=== PATIENT | male | born 1950 | race Caucasian/White ===

== ENCOUNTER → 2017-12-02 | Day surgery (SDC) | payer MEDICARE, OTHER ==
[~2017-12-02] MED LIST: ASPIRIN81 MG PEG; ATORVASTATIN CA20 MG PEG; AUGMENTIN 500-1 EACH PO; COLACE100 MG PO; FERROUS SULFAT325 MG PO; LOSARTAN POTASS25 MG PO; METOPROLOL TART25 MG PEG; PANTOPRAZOLE SO40 MG PEG; PANTOPRAZOLE SO40 MG PO; PROPOFOL IV EMULSION 10 MG/ML 50 ML VIAL ONE; TYLENOL WITH C1 EACH PO
--- OUTSIDE RECORDS SUMMARY | 2017-12-02 07:19 | XMS REPORT ---
Author Author [facility] Address Unknown Phone Unavailable Care Team Providers Care Four Slide Machine Operator Name Role Phone CITLALI SAM Unavailable Unavailable Problems This patient has no known problems. Allergies, Adverse Reactions, Alerts This patient has no known allergies or adverse reactions. Medications This patient has no known medications. Results Test Description Test Time Test Comments Text Results Atomic Results Result Comments CT SOFT TISSUE NECK W [place] [id number] [place] [id number] Patient Name: Ricardo HAAS MR #: [id number] : 1950 Age/Sex: 66/M Req #: [id number] Adm Physician: Ordered by: HODAN SELF Report #: [id number] Location: ER Room/Bed: Procedure: 0823- 0027 CT/CT SOFT TISSUE NECK W Exam Date: 03/10/17 Exam Time: 1709 REPORT STATUS: Signed Exam: Soft tissue neck CT with IV contrast History: Swelling in neck, hoarseness, dysphasia. Comparison studies: None Technique: Axial, coronal and sagittal images from the skull base to the thoracic inlet. Coronal and sagittal images reconstructed from the axial data. Intravenous contrast: 100 cc of Omnipaque 300. Findings: Upper aerodigestive tract: Asymmetric dilatation of the left piriform sinus and left laryngeal ventricle with medialized left vocal fold compatible with focal cortical paralysis. There is subtle asymmetric soft tissue thickening along the left false cord which extends to the superior margin of the posterior commissure. The paraglottic and preepiglottic fat are maintained. Arytenoid cartilage appear symmetric. Nasal cavity: A 2.0 cm hypodense lesion along the posterior right superior nasal septum which extends to the right nasal choana into the superior nasal pharynx may be a polyp. Paranasal sinuses: Clear. Soft tissues: Focal skin and soft tissue thickening in the left lateral cervical soft tissues and along the margins of the superior left sternocleidomastoid muscle as well as metallic clips in the left cervical soft tissues as sequela previous surgery. Lymph nodes: No radiographically significant adenopathy. Vessels: Cervical carotid and vertebral arteries are patent. Mild atherosclerosis in the cervical carotid bulbs and carotid siphons without significant cervical carotid bulbs. Glands (thyroid, parotid and submandibular): Normal in size and symmetric. No masses. Orbits: No abnormalities. Temporal bones : No abnormalities. Skull base and facial bones: Chronic deformity of the left ventricular body may be sequela of previous chronic endodontal- periodontal disease or trauma in the appropriate context. Periapical lucency at the left first maxillary molar. The first maxillary molar roots also extend beyond the lingual cortex of the mandible (activity to be determined clinically). Cervical spine: Mild multilevel cervical disc degeneration , slightly worse at C5-C6 where a disc osteophyte complex indents the thecal sac and result in minimal canal stenosis. Mild foraminal stenosis on the right at C3-C4 and bilaterally at C5-C6 due to uncovertebral facet arthrosis. Incidental findings: Partially imaged median sternotomy wires. IMPRESSION: 1. Imaging findings compatible with left vocal cord paralysis with subtle soft tissue thickening along the posterior left false focal fold which extends to the superior margin of the posterior commissure. Recommend correlation with direct inspection to evaluate focal cord mobility and to exclude focal cord neoplasm. 2. Postsurgical changes in the left neck. Soft tissue thickening in the left lateral neck presumably reflects scar tissue which and can be correlated with direct inspection. 3. No radiographically significant cervical adenopathy. 4. Circumscribed right posterior nasal cavity mass, likely polyp. Signed by: Dr. Ninfa Matt M.D. on 03/10/2017 6:04 PM Dictated By: NINFA MATT MD 2015 Transcribed By: SOLEDAD on 03/10/17 180 COPY TO: HODAN SELF CHEST 2 VIEWS [place] [address] Patient Name: TRACY HAAS MR #: [id number] : 1950 Age/Sex: 66/M Req #: [id number] Adm Physician: Ordered by: HODAN SELF Report #: [id number] Location: ER Room/Bed: Procedure: 0823- 0046 DX/CHEST 2 VIEWS Exam Date: 03/10/17 Exam Time : 1430 REPORT STATUS: Signed PROCEDURE: Frontal and lateral views of the chest. COMPARISON: [facility], DX, CHEST 2 VIEWS, 2014, 9:37. INDICATIONS: CHEST PAIN, WEAKNESS FINDINGS: Lines/tubes: None. Lungs: The lungs are well inflated and clear. There is no evidence of pneumonia or pulmonary edema. Pleura: There is no pleural effusion or pneumothorax. Heart and mediastinum: Cardiac silhouette is unremarkable. Pulmonary vasculature is normal. CABG changes Bones: No acute bony abnormality. IMPRESSION: 1. No acute cardiopulmonary abnormalities. Ezequiel Barron M.D. Dictated by : Ezequiel Barron M.D. on 03/10/2017 at 15:28 Electronically approved by: Ezequiel Barron M.D. on 03/10/2017 at 15:28 Dictated By : EZEQUIEL BARRON MD [id number] Transcribed By: SHARAN on 03/10/17 152 COPY TO: HODAN SELF
--- OUTSIDE RECORDS SUMMARY | 2017-12-02 07:19 | XMS REPORT | Summary of Care ---
Author Author Vanesa Cueva M.A. Organization Unknown Address Unknown Phone Unavailable Care Team Providers Care Computer Science Teacher Name Role Phone MADISON CRAIG M.D. 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 Skin ulcer of neck (707.8, L98.499) Status: Active Unilateral vocal cord paralysis (478.31, J38.01) Status: Active Oropharyngeal dysphagia (787.22, R13.12) Status: Active Decreased ROM of neck (723.8, R29.898) Status: Active Exercise counseling (V65.41, Z71.82) Status: Active Hoarseness of voice (784.42, R49.0) Status: Active Medications Name Dates Details Cynthia Low Strength 81 MG TBEC Active Cozaar 50 MG Oral Tablet * Refills: 0 Active Metoprolol Tartrate 25 MG Oral Tablet * Refills: 0 Active Lipitor 20 MG Oral Tablet * Refills: 0 Active ALPRAZolam 0.25 MG Oral Tablet TAKE 1 TABLET 1 HOUR BEFORE MRI. MAY REPEAT ONE TIME. * Quantity: 4 Refills: 0 MADISON CRAIG M.D. * Start : 10-Apr-2017 Active Allergies and Adverse Reactions Name Dates Details No Known Drug Allergies (Allergy) Status: Active Past Medical History Name Dates Details History of cardiac disorder (V12.50, Z86.79) Status: Resolved History of hypertension (V12.59, Z86.79) Status: Resolved History of malignant neoplasm of colon (V10.05, Z85.038) Status: Resolved Procedures Procedure Dates Details [LH] Surgical Pathology Date: 08-Apr-2017 History of cyst incision and drainage Completed History of colon surgery Completed History of pharyngeal lesion excision Completed Immunization Name Dates Details Immunizations not documented Family History Name Dates Details Family history of cardiac disorder (V17.49, Z82.49) Status: Active Name Dates Details Family history of malignant neoplasm (V16.9, Z80.9) Status: Active Name Dates Details Family history of malignant neoplasm (V16.9, Z80.9) Status: Active Name Dates Details Family history of cardiac disorder (V17.49, Z82.49) Status: Active Social History Name Dates Details - Status: Name Dates Details Never smoker Vital Signs Date Test Result Details [id number]-Abd-72188:10 BP Systolic 112 mm[Hg] Status: Comments: Location: LUE; Position: Sitting BP Diastolic 63 mm[Hg] Status: Comments: Location: LUE; Position: Sitting Height 69 in Status: Weight 162 lb Status: Body Mass Index Calculated 23.92 kg/m2 Status: Body Surface Area Calculated 1.89 m2 Status: Temperature 98 f Status: Comments: Method: Oral Heart Rate 88 /min Status: 6-Nez-[id number]:09 BP Systolic 112 mm[Hg] Status: Comments: Location: LUE; Position: Sitting BP Diastolic 66 mm[Hg] Status: Comments: Location: LUE; Position: Sitting Height 69 in Status: Weight 165 lb Status: Body Mass Index Calculated 24.37 kg/m2 Status: Body Surface Area Calculated 1.9 m2 Status: Temperature 97.8 f Status: Comments: Method: Oral Heart Rate 80 /min Status: Results Date Description Value Details Results not documented Plan of Care Name Dates Details Planned Observations Planned Goals not documented Planned Encounters Appointment; MADISON CRAIG M.D. On: 14-Jun-2017 10:30 Instructions Name Dates Details Instructions not documented Encounters Appointment; MADISON CRAIG M.D. Encounter Diagnosis: Problem not documented On: 05-Mar-2017 13:45 Appointment; MADISON CRAIG M.D. Encounter Diagnosis: Problem not documented On: 25-Mar-2017 13:45 Appointment; MADISON CRAIG M.D. Encounter Diagnosis: Problem not documented On: 08-Apr-2017 14:15 Appointment; ALEX BINGHAM M.D. Encounter Diagnosis: Problem not documented On: 27-May-2017 11:00 Appointment; MADISON CRAIG M.D. Encounter Diagnosis: Problem not documented On: 27-May-2017 11:00 Appointment; MADISON CRAIG M.D. Encounter Diagnosis: Problem not documented On: 04-Jun-2017 8:00
--- NOTE | 2017-12-02 13:26 | Operative Report ---
DATE OF PROCEDURE: December 02, 2017 REFERRING PHYSICIAN: Dr. Jacob Gotti PROCEDURE PERFORMED: Esophagogastroduodenoscopy and percutaneous endoscopic gastrostomy tube replacement. INDICATIONS FOR PROCEDURE: Dysphagia, dysfunctional gastrostomy tube, patient is in for an esophagogastroduodenoscopy and percutaneous endoscopic gastrostomy tube replacement. MEDICATION: Patient was done under MAC. Please see anesthesiologist's note. PROCEDURE: With the patient in the left lateral decubitus position, the flexible fiberoptic Olympus gastroscope was introduced into the esophagus under direct visualization without any difficulty. There was some patchy erythema noted in the distal esophagus. The scope was then advanced with ease into the stomach, traversing a moderate-size hiatal hernia. Mucosa overlying the antrum and the body revealed some patchy areas of erythema. The pylorus was intubated with ease, and the scope was advanced into the 2nd portion of the duodenum. The scope was then withdrawn slowly. The mucosa overlying the proximal 2nd portion as well as the duodenal bulb appeared to be within normal limits. The scope was then withdrawn back into the stomach and retroflexed. Mucosa overlying the fundus appeared to be within normal limits. The scope was then straightened out, and the old G-tube was then removed per the pull traction method. PEG tube replacement was carried out through the old G-tube stoma in the usual fashion. The scope was subsequently withdrawn after documenting a good positioning of the intragastric bumper. Patient tolerated the procedure well. IMPRESSION 1. Mild distal esophagitis. 2. Moderate-size hiatal hernia. 3. Gastritis. 4. Percutaneous endoscopic gastrostomy tube replacement carried out in the usual fashion through the old gastrostomy tube stoma. Patient tolerated the procedure well. Patient can use gastrostomy tube upon return to the facility. Job#: [id number] cc:JACOB GOTTI MD
== END | disposition home or self-care (01) ==
LOC: OR 07:16
PROVIDERS: ATTEND Internal Medicine Gastroenterology